=== PATIENT | male | born 1960 | race Caucasian/White ===

== ENCOUNTER 2020-06-28 23:03 | Emergency (ER) | payer MEDICAID ==
[~2020-06-28] VITALS: Ht 170.2 cm; Wt 86.2 kg
[2020-06-28 23:06] VITALS: BP_SYST 125
--- NOTE | 2020-06-28 23:15 | NUR ---
PT PLACED IN ED FASTTRACK CHAIR 2
--- NOTE | 2020-06-28 23:30 | NUR ---
ED MD GRACIA EVALUTAING PT
--- NOTE | 2020-06-28 23:43 | NUR ---
LAB DRAWING BLOOD SAMPLES
[2020-06-29 00:01] LABS: BILIRUBIN,URINE NEGATIVE (NEGATIVE); BLOOD, URINE 1+ (NEGATIVE); CLARITY/URINE CLEAR (CLEAR); COLOR,URINE YELLOW (YELLOW); GLUCOSE,URINE NEGATIVE (NEGATIVE); KETONES,URINE NEGATIVE (NEGATIVE); LEUKOCYTE ESTERASE ,URINE NEGATIVE (NEGATIVE); NITRITE, URINE NEGATIVE (NEGATIVE); PROTEIN URINE NEGATIVE (NEGATIVE); UROBILINOGEN,URINE 0.2 (0.2-1.0)
[2020-06-29 00:03] LABS: BACTERIA,URINE FEW /HPF (None Seen); WBC,URINE 0-3 /HPF (0-3)
[2020-06-29 00:13] LABS: EOSINOPHILS # (AUTO) 0.2 K/uL (0.0-0.4); WHITE BLOOD COUNT (AUTO) 5.4 K/uL (4.8-10.8)
[2020-06-29 00:15] LABS: ANION GAP 8 (5-15); CALCIUM 8.6 mg/dL (8.4-11.0); CHLORIDE 104 mmol/L (98-107); CREATININE 0.84 mg/dL (0.55-1.30); GLUCOSE 100 mg/dL (70-99); SODIUM SERUM 140 mmol/L (136-145); UREA NITROGEN, BLOOD 18 mg/dL (8-21)
--- NOTE | 2020-06-29 00:15 | NUR ---
Note tahirone in EDM - 06/29/20 at 0034 by [email or web address] Patient given written and verbal discharge instructions and verbalizes understanding. ER MD [place] discussed with patient the results and treatment provided. Patient in stable condition. ID arm band removed. Patient educated on pain management and to follow up with [facility] for questions provided and answered.
[2020-06-29 00:18] LABS: BASOPHILS % (AUTO) 0.8 % (0.0-2.0); EOSINOPHILS % (AUTO) 3.2 % (0.0-4.0); HEMATOCRIT 44.4 % (36-54); HEMOGLOBIN 14.8 g/dL (14.0-18.0); LYMPHOCYTES # (AUTO) 1.5 K/uL (1.0-5.5); LYMPHOCYTES % (AUTO) 28.4 % (20.5-51.5); MEAN CORPUSCULAR HEMOGLOBIN 30 pg (27-31); MEAN CORPUSCULAR HGB CONC 33 % (32-36); MEAN CORPUSCULAR VOLUME 89 fL (79.0-98.0); MONOCYTES # (AUTO) 0.7 K/uL (0.0-1.0); MONOCYTES % (AUTO) 13.3 % (1.7-9.3); NEUTROPHILS # (AUTO) 2.9 K/uL (1.8-7.7); NEUTROPHILS % (AUTO) 54.3 % (40.0-70.0); PLATELET COUNT (AUTO) 295 K/uL (130-430); RED BLOOD CELL COUNT(AUTO) 4.99 MIL/uL (4.2-6.2); RED CELL DISTRIBUTION WIDTH 14.9 % (9.0-15.0)
[2020-06-29 00:21] LABS: ALBUMIN 3.7 g/dL (3.4-4.8); ASPARTATE AMINOTRANSFERASE 20 U/L (10-37); TOTAL BILIRUBIN 0.1 mg/dL (0.0-1.0)
[2020-06-29 00:35] LABS: ALANINE AMINOTRANSFERASE < 3 U/L (12-78); GFR AFRICAN AMERICAN 121 mL/min (>90)
[2020-06-29] MEDS ORDERED: MOM PO (00:46)
[2020-06-29 00:55] VITALS: BP_SYST 125
--- NOTE | 2020-06-29 00:55 | NUR ---
Patient given written and verbal discharge instructions and verbalizes understanding. ER MD SAEZ discussed with patient the results and treatment provided. Patient in stable condition. ID arm band removed. IV catheter removed intact and dressing applied, no active bleeding. Rx of MILK OF MAGNESA given. Patient educated on pain management and to follow up with PMD. Pain Scale 4/10. [facility] for questions provided and answered. Medication side effect fact sheet provided.
== END 2020-06-29 00:55 | disposition home or self-care (01) ==
LOC: SED 23:03
DX: K59.00 Constipation, unspecified (principal); R10.11 Right upper quadrant pain; Z90.49 Acquired absence of other specified parts of digestive tract
CPT/HCPCS: 36415; 76376; 80053; 81000-TC; 85025; 99284